=== PATIENT | female | born 2005 | race Caucasian/White ===

== ENCOUNTER 2024-03-10 09:14 | Emergency (ER) | payer OTHER, SELFPAY ==
[2024-03-10 09:16] VITALS: BP 153/99
[2024-03-10 09:26] VITALS: BP 147/93
--- NOTE | 2024-03-10 09:33 | ED.GENMED ---
History of Present Illness
<Shannon Smith PA-C - Last Filed: 03/10/24 16:18>
General
Chief Complaint: Breathing Problem
Source: patient and family
Time Seen by Provider: 03/10/24 09:22
History of Present Illness
History of Present Illness:
18yoF with a history of obesity and remote history of childhood asthma presenting with her mother for evaluation of shortness of breath. Patient returned from a 9 hour flight from [place] 2 days ago. While on the flight, she had an episode of
vomiting. She started to experience left periorbital swelling yesterday which resolved after taking Benadryl. She started to experience shortness of breath and chest tightness last night which continued into this morning. She went to [facility]
for evaluation and was found to be tachycardic. She had lab work done but is unsure of the results. She was give a 1x dose of prednisone 40mg and advised to go to the ED for evaluation. She denies any presyncope or syncope. No fevers. Last episode
of vomiting was around 1am this morning. She denies tobacco use.
Phy Exam
<Shannon Smith PA-C - Last Filed: 03/10/24 16:18>
General Physical Exam
General Presentation: mild distress
General age: appears stated age
General Skin: warm and dry
General Habitus: normal
General Mental: alert
General Hydration: appears well hydrated
Cardiovascular Exam
Cardiovascular Exam: no edema, no murmur and tachycardia
Pulmonary Exam
Pulmonary Exam: decreased breath sounds and other (Tachypnea noted. Decreased breath sounds throughout with faint expiratory wheezes. )
Respirations: moderate effort
Musculoskeletal Exam
Musculoskeletal Exam: no edema
Skin Exam
Skin Exam: normal color and warm/dry
Psychiatric Exam
Psychiatric Exam: normal mood/affect
Course
<Shannon Smith PA-C - Last Filed: 03/10/24 16:18>
Orders/Labs/Results
Orders:
Orders
03/10/24 09:17
ECG [Electrocardiogram (*1)] Urgent
Reason for Study: Chest Pain
03/10/24 09:18
EKG- Treatment ONCE
03/10/24 09:30
Albuterol Nebs [Ventolin Nebules] 5 mg INH R NOW STA
Ipratropium Nebs [Atrovent Nebules] 0.5 mg INH R NOW STA
Test Result ONCE
03/10/24 10:46
COVID-19 Antigen Urgent
Source: Nasal Swab
Complete Blood Count/With Diff Urgent
Comprehensive Metabolic Panel Urgent
D-Dimer Urgent
HCG, Serum Qualitative Screen Urgent
Troponin I Urgent
03/10/24 11:50
CT Chest Pe Study Urgent
Comment:
Reason For Exam: SOB, tachycardia, recent travel
03/10/24 15:29
Albuterol [ProAIR HFA INHALER] 2 puff INH R NOW STA
Abnormal Lab Results
03/10/24
10:46
WBC 15.5 H 10^3/uL
(4.8-10.8)
Abs Immat Gran (auto) 0.1 H 10^3/uL
(0-0.05)
Absolute Neuts (auto) 14.3 H 10^3/uL
(1.4-6.5)
Absolute Lymphs (auto) 0.8 L 10^3/uL
(1.2-3.4)
Neutrophils % 91.7 H %
(42.2-75.2)
Lymphocytes % 4.8 L %
(20.5-51.1)
Glucose 105 H mg/dl
(70-99)
ALT 36 H U/L
(0-35)
03/10/24 10:46
03/10/24 10:46
Vital Signs
Initial and Last Documented VS:
Initial Vital Signs
Temp Pulse Resp BP Pulse Ox
99.7 F 122 22 153/99 99
03/10/24 09:16 03/10/24 09:16 03/10/24 09:16 03/10/24 09:16 03/10/24 09:16
Last Documented Vital Signs
Temp Pulse Resp BP Pulse Ox
99.7 F 123 29 135/76 96
03/10/24 09:16 03/10/24 12:45 03/10/24 12:45 03/10/24 12:00 03/10/24 13:45
<Nida Nichole MD - Last Filed: 03/10/24 10:06>
Orders/Labs/Results
Orders:
Orders
03/10/24 09:17
ECG [Electrocardiogram (*1)] Urgent
Reason for Study: Chest Pain
03/10/24 09:18
EKG- Treatment ONCE
03/10/24 09:30
Albuterol Nebs [Ventolin Nebules] 5 mg INH R NOW STA
Ipratropium Nebs [Atrovent Nebules] 0.5 mg INH R NOW STA
Test Result ONCE
03/10/24 10:46
COVID-19 Antigen Urgent
Source: Nasal Swab
Complete Blood Count/With Diff Urgent
Comprehensive Metabolic Panel Urgent
D-Dimer Urgent
HCG, Serum Qualitative Screen Urgent
Troponin I Urgent
03/10/24 11:50
CT Chest Pe Study Urgent
Comment:
Reason For Exam: SOB, tachycardia, recent travel
03/10/24 15:29
Albuterol [ProAIR HFA INHALER] 2 puff INH R NOW STA
Abnormal Lab Results
03/10/24
10:46
WBC 15.5 H 10^3/uL
(4.8-10.8)
Abs Immat Gran (auto) 0.1 H 10^3/uL
(0-0.05)
Absolute Neuts (auto) 14.3 H 10^3/uL
(1.4-6.5)
Absolute Lymphs (auto) 0.8 L 10^3/uL
(1.2-3.4)
Neutrophils % 91.7 H %
(42.2-75.2)
Lymphocytes % 4.8 L %
(20.5-51.1)
Glucose 105 H mg/dl
(70-99)
ALT 36 H U/L
(0-35)
03/10/24 10:46
03/10/24 10:46
Vital Signs
Initial and Last Documented VS:
Initial Vital Signs
Temp Pulse Resp BP Pulse Ox
99.7 F 122 22 153/99 99
03/10/24 09:16 03/10/24 09:16 03/10/24 09:16 03/10/24 09:16 03/10/24 09:16
Last Documented Vital Signs
Temp Pulse Resp BP Pulse Ox
99.7 F 123 29 135/76 96
03/10/24 09:16 03/10/24 12:45 03/10/24 12:45 03/10/24 12:00 03/10/24 13:45
[place];Shannon Smith PA-C - Last Filed: 03/10/24 16:18>
MDM/Problems Addressed
Differential Diagnosis Includes:
18yoF here with SOB that began last night. Recent 9 hour flight from [place] 2 days ago. Remote hx of asthma. Sent here by urgent care. She is tachycardic to the 120s in triage. Oxygen saturation 99% on room air. She is tachypneic during exam.
Decreased breath sounds with wheezing noted. Differential diagnosis includes but is not limited to: asthma exacerbation/bronchospasm, viral syndrome, PE, pneumonia
Initial ED plan: Check cardiac labs, D-dimer, COVID swab, EKG, and CXR. DuoNeb and reassess.
<Shannon Smith PA-C - Last Filed: 03/10/24 16:18>
*EKG
Interpreted by ED Provider?: Yes
EKG Intrepretation Date: 03/10/24
EKG Intrepretation Time: 09:52
Heart Rate: 118
Rate: tachycardiac
Rhythm: sinus
[place]: normal axis
Interval: normal interval
QRS Pattern: normal QRS
Ischemia: no ischemia
*Critical Care Note
Total Time (30-74mins, 75-104mins- exclusive of procedures): Not Applicable
<Shannon Smith PA-C - Last Filed: 03/10/24 16:18>
Update Note
Update Note:
Labs reveal a leukocytosis with a WBC of 15. EKG shows sinus tachycardia without ischemic changes and troponin is shayy. D-dimer normal although patient persistently tachycardic so CTA chest added for completeness. CT is negative for pulmonary
embolism. There is a 3cm plate-like area in the RLL which may be possible pneumonia vs scarring vs atelectasis. Given leukocytosis, will cover with abx. Patient reassessed multiple times and she is feeling much better after neb treatment. Lungs now
CTA. No episodes of hypoxia during ED stay. She is stable for discharge. She was started on a course of prednisone and doxycycline. Neb machine provided as well as prescriptions for albuterol. Advised close PCP f/u and ED return precautions
discussed. She was discharged in stable condition with her mother.
ED Attending Note
<Shannon Smith PA-C - Last Filed: 03/10/24 16:18>
-
Portions of this chart may have been created with voice recognition software.� Occasional wrong word or��sound alike� substitutions may have occurred due to the inherent limitations of voice recognition software.
<Nida Nichole MD - Last Filed: 03/10/24 10:06>
ED Attending Note
Patient seen and examined by attending physician: Yes
I performed the substantive portion of visit, reviewed & personally made and approve the management plan that is documented in note by myself or KRISTIAN.: Yes
ED Attending Note:
Patient appears anxious but nontoxic and able to speak in full sentences. Patient is not hypoxic but is tachycardic in the 110s to 120. We will reassess patient after she gets a DuoNeb to see if her tachypnea is improved and if she feels better.
D-dimer also done to assess for risk of pulmonary embolism given her recent flight home from [place]. Patient is tachycardic on exam. Patient's bilateral lower legs are nontender and she has negative Homans' sign bilaterally
Discharge Plan
Departure
Patient Disposition: Home (Routine Discharge)
Date of Disposition: 03/10/24
Time of Disposition: 14:46
Patient with high blood pressure during this ER visit?: Yes
Discharge Problem:
Acute bronchospasm, Shortness of breath, Community acquired pneumonia
Instructions: Wheezing
Prescriptions:
New
doxycycline hyclate 100 mg capsule
100 mg PO BID Qty: 14 0RF
prednisone 50 mg tablet
50 mg PO DAILY Qty: 4 0RF
albuterol sulfate 2.5 mg/0.5 mL solution for nebulization
5 mg inhalation Q6H PRN (Reason: shortness of breath or wheezing) Qty: 30 0RF
albuterol sulfate [Ventolin HFA] 90 mcg/actuation HFA aerosol inhaler
1 inh inhalation Q6H PRN (Reason: shortness of breath or wheezing) Qty: 8.5 0RF
Referrals:
Parker Desai DO [Family Provider] -
Activity Restrictions/Additional Instructions:
Take antibiotics and prednisone as prescribed. Use inhaler and nebulizer treatments as needed for wheezing.
Please follow-up with your family doctor in 2-3 days. Return to the ER immediately with any new or worsening symptoms.
Interventions
Interventions:
*General Assessment Last Done: 03/10/24 09:48
*Neglect/Abuse Screening Last Done: 03/10/24 09:48
ED- Fall Risk Assessment Last Done: 03/10/24 09:48
*ED COVID-19 Vaccine History Last Done: 03/10/24 09:17
*Nursing Disposition Last Done: 03/10/24 15:52
ED- Cardiac Assessment Last Done: 03/10/24 09:48
ED- Pulmonary Assessment Last Done: 03/10/24 09:48
Discharge Date and Time
Discharge Date/Time: 03/10/24 15:53
Print Language: CITIZEN OF [place]
[2024-03-10] MEDS: ATROVENT NEBULES 0.5 MG INH (10:48)
[2024-03-10] MEDS: VENTOLIN NEBULES 5 MG INH (10:48)
[2024-03-10 10:53] VITALS: BP 139/89
[2024-03-10 10:54] LABS: % Basophils 0.3 % (0-2); % Eosinophils 0.1 % (0-6); % Immature Granulocytes 0.5 % (0-0.5); % Lymphocytes 4.8 % (20.5-51.1); % Monocytes 2.6 % (1.7-9.3); % Neutrophils 91.7 % (42.2-75.2); Absolute Immature Granulocytes 0.1 10^3/uL (0-0.05); Absolute Lymphocytes 0.8 10^3/uL (1.2-3.4); Absolute Monocytes 0.4 10^3/uL (0.1-0.6); Absolute Neutrophils 14.3 10^3/uL (1.4-6.5); Hematocrit 41.9 % (37.0-47.0); Hemoglobin 14.5 g/dL (12.0-16.0); Mean Corp Hgb Conc. 34.6 g/dL (33.0-37.0); Mean Corpuscular Hgb 30.1 pg (27.0-31.0); Mean Corpuscular Volume 86.9 fL (81.0-99.0); Mean Platelet Volume 10.1 fL (7.4-10.4); Nucleated Red Blood Cells % 0 %; Platelet Count 307 10^3/uL (130-400); Red Blood Cell Count 4.82 10^6/uL (4.20-5.40); Red Cell Dist. Width 13.3 % (11.5-14.5); White Blood Cell Count 15.5 10^3/uL (4.8-10.8)
[2024-03-10 11:00] VITALS: BP 123/90
[2024-03-10 11:06] LABS: D-Dimer 0.38 ug/mlFEU (0.00-0.50)
[2024-03-10 11:09] LABS: COVID-19 Antigen Negative (Negative)
[2024-03-10 11:15] LABS: ALT (SGPT) 36 U/L (0-35); AST (SGOT) 30 U/L (14-36); Albumin 4.5 g/dl (3.5-5.0); Alkaline Phosphatase 95 U/L (38-126); Blood Urea Nitrogen 11 mg/dl (7-17); Calcium 9.5 mg/dl (8.4-10.2); Carbon Dioxide 26 mmol/L (22-30); Chloride 103 mmol/L (98-107); Glucose 105 mg/dl (70-99); Potassium 4.8 mmol/L (3.5-5.1); Sodium 136 mmol/L (135-145); Total Bilirubin 0.5 mg/dl (0.2-1.3); Total Protein 7.5 g/dl (6.3-8.2); eGFR > 60.00
[2024-03-10 11:18] LABS: HCG, Serum Qualitative Screen Negative
[2024-03-10 11:24] LABS: Troponin I < 0.012 ng/ml
[2024-03-10 12:00] VITALS: BP 135/76
[2024-03-10] MEDS: ProAIR HFA INHALER 2 PUFF INH (15:51)
== END 2024-03-10 15:53 | disposition home or self-care (01) ==
LOC: EMR 09:14
PROVIDERS: Physician Assistant; EMERGENCY PHYSICIAN Emergency Medicine; FAMILY PHYSICIAN Family Medicine
DX: R06.02 Shortness of breath (principal); R11.10 Vomiting, unspecified; R00.0 Tachycardia, unspecified; J98.01 Acute bronchospasm; J18.9 Pneumonia, unspecified organism; Z11.52 Encounter for screening for COVID-19; J45.909 Unspecified asthma, uncomplicated; E66.9 Obesity, unspecified
CPT/HCPCS: 99285; 94640 ×2; 71275; 80053; 84484; 84703; 85025; 85379; 87811; 93005; Q9967

== ENCOUNTER → 2024-05-30 16:06 | Outpatient (REF) | payer OTHER, SELFPAY | LOC: RAD 16:06 | PROVIDERS: ATTENDING PHYSICIAN Nurse Practitioner Family | DX: J06.9 Acute upper respiratory infection, unspecified (principal) | CPT/HCPCS: 71046 ==

== ENCOUNTER → 2025-05-01 09:30 | Outpatient (REF) | payer OTHER, SELFPAY | LOC: WDC 09:30 | PROVIDERS: ATTENDING PHYSICIAN Physician Assistant Medical | DX: N63.31 Unspecified lump in axillary tail of the right breast (principal) | CPT/HCPCS: 76642 ==

== ENCOUNTER 2025-07-08 18:25 | Emergency (ER) | payer OTHER, SELFPAY ==
[2025-07-08 18:29] VITALS: BP 169/115
[2025-07-08 20:05] VITALS: BMI 47.3
[2025-07-08 20:06] VITALS: BP 153/89
--- NOTE | 2025-07-08 20:15 | ED.GENMED ---
History of Present Illness
General
Chief Complaint: Abdominal Pain
Time Seen by Provider: 07/08/25 19:48
History of Present Illness
History of Present Illness:
19-year-old female who presents to the emergency department for evaluation of right lower quad abdominal pain that began earlier this evening. She describes a constant pain that travels through to the lower back, no associated nausea, vomiting, or
diarrhea. No history abdominal surgeries. No fevers or chills. LMP 3 weeks ago
Review of Systems
Review of Systems
Allergies reviewed?: Yes
All Other Systems: ROS reviewed and negative except as documented in HPI and ROS
Phy Exam
Physical Exam
Physical Exam:
GEN: Well appearing, NAD, WDWN
HEENT: Oral mucosa moist, no scleral icterus
Cardiac: Regular rate
Lung: No respiratory distress, no tachypnea
Abdomen: Soft, moderate to severe tenderness in the right lower quadrant, no rigidity although morbid obesity limits exam
MSK: No gross deformity or injuries
Skin: Good color, no pallor or jaundice, no rashes
Neuro: AO x3, moves all extremities freely
Psych: Calm, cooperative
Course
Orders/Labs/Results
Orders:
Orders
07/08/25 19:50
Test Result ONCE
07/08/25 20:09
Urinalysis Reflex To Culture Urgent
Date Specimen was Collected: 07/08/25
Time Specimen was Collected: 20:03
Urine Microscopic Reflex Cult Urgent
Urine Culture Urgent
STANISLAV Source: U
Specimen Description:
Date Specimen was Collected: 07/08/25
Time Specimen was Collected: 20:03
07/08/25 20:18
CT Abd/Pel (IV only)-DH only Urgent
Comment:
Reason For Exam: RLQ pain
07/08/25 20:45
Complete Blood Count/With Diff Urgent
Comprehensive Metabolic Panel Urgent
HCG, Serum Qualitative Screen Urgent
07/08/25 21:26
Ketorolac [Toradol] 15 mg IV NOW STA
07/08/25 22:55
Sulfamethox./Trimethoprim Ds [Bactrim Ds 800 mg/160 mg] 1 tablet PO NOW STA
Abnormal Lab Results
07/08/25 07/08/25
20:09 20:45
WBC 11.7 H 10^3/uL
(4.8-10.8)
MCHC 32.8 L g/dL
(33.0-37.0)
Absolute Neuts (auto) 8.7 H 10^3/uL
(1.4-6.5)
Absolute Monos (auto) 0.8 H 10^3/uL
(0.1-0.6)
Lymphocytes % 18.0 L %
(20.5-51.1)
Sodium 133 L mmol/L
(135-145)
Leukocyte Esterase Rfl 1+ A
(Negative)
Urine WBC (Reflex) 11-15 A /HPF
(0-5)
Urine Bacteria (Reflex) Moderate A
(Negative)
Urine Albumin (Reflex) 1+ A
(Neg - Trace)
07/08/25 20:45
07/08/25 20:45
Vital Signs
Initial and Last Documented VS:
Initial Vital Signs
Temp Pulse Resp BP Pulse Ox
97.9 F 115 20 169/115 98
07/08/25 18:29 07/08/25 18:29 07/08/25 18:29 07/08/25 18:29 07/08/25 18:29
Last Documented Vital Signs
Temp Pulse Resp BP Pulse Ox
97.9 F 112 21 130/72 97
07/08/25 18:29 07/08/25 21:45 07/08/25 21:45 07/08/25 21:00 07/08/25 21:45
MDM/Problems Addressed
MDM/Problems Addressed:
Unclear etiology to her right lower abdominal pain. She did improve dramatically with Toradol administration. She is clinically well although mildly tachycardic, her heart rates do improve with passive observation while no one is in the room and
increase once staff enters the room suggesting anxiety component. She does have leukocytosis and pyuria which would suggest potential UTI although has no lower urinary tract voiding symptoms. CT shows no acute pathology. Given that her symptoms
did improve treat this empirically as a UTI pending culture
*Pulse Oximetry
SaO2: 98
Oxygen Mode of Delivery: Room air
Patient hypoxic: no
*Critical Care Note
Total Time (30-74mins, 75-104mins- exclusive of procedures): Not Applicable
ED Attending Note
-
Portions of this chart may have been created with voice recognition software.� Occasional wrong word or��sound alike� substitutions may have occurred due to the inherent limitations of voice recognition software.
Discharge Plan
Departure
Patient Disposition: Home (Routine Discharge)
Date of Disposition: 07/08/25
Time of Disposition: 22:55
Patient with high blood pressure during this ER visit?: No
Discharge Problem:
Acute right lower quadrant pain, Bacteriuria with pyuria
Instructions: Abdominal Pain
Prescriptions:
New
sulfamethoxazole-trimethoprim [Bactrim DS] 800-160 mg tablet
1 tab PO BID Qty: 9 0RF
No Action
albuterol sulfate 2.5 mg/0.5 mL solution for nebulization
5 mg inhalation Q6H PRN (Reason: shortness of breath or wheezing) Qty: 30 0RF
albuterol sulfate [Ventolin HFA] 90 mcg/actuation HFA aerosol inhaler
1 inh inhalation Q6H PRN (Reason: shortness of breath or wheezing) Qty: 8.5 0RF
Referrals:
UNKNOWN - PT DOES,NOT KNOW [Unknown Provider]
Interventions
Interventions:
*General Assessment Last Done: 07/08/25 18:29
*Neglect/Abuse Screening Last Done: 07/08/25 19:47
*ED- Fall Risk Assessment Last Done: 07/08/25 20:04
*ED COVID-19 Vaccine History Last Done: 07/08/25 20:04
*ED Influenza Vaccine History Last Done: 07/08/25 20:04
JP-Pqekuv-Acjphneljq Assessment Last Done: 07/08/25 20:05
Discharge Date and Time
Print Language: ARMENIAN
[2025-07-08 20:18] LABS: Urine Character Clear (Clear)
[2025-07-08 20:27] LABS: Urine Red Blood Cell 0-2 /HPF (0-2)
[2025-07-08 20:47] VITALS: BP 134/74
[2025-07-08 21:00] VITALS: BP 130/72
[2025-07-08 21:06] LABS: Hematocrit 42.7 % (37.0-47.0); Hemoglobin 14.0 g/dL (12.0-16.0); Mean Corp Hgb Conc. 32.8 g/dL (33.0-37.0); Mean Corpuscular Volume 90.1 fL (81.0-99.0); Nucleated Red Blood Cells % 0 %; Platelet Count 313 10^3/uL (130-400); Red Cell Dist. Width 13.4 % (11.5-14.5)
[2025-07-08 21:23] LABS: ALT (SGPT) 32 U/L (0-35); AST (SGOT) 23 U/L (14-36); Albumin 4.3 g/dl (3.5-5.0); Alkaline Phosphatase 72 U/L (38-126); Blood Urea Nitrogen 10 mg/dl (7-17); Calcium 9.2 mg/dl (8.4-10.2); Carbon Dioxide 28 mmol/L (22-30); Chloride 102 mmol/L (98-107); Estimated Creatinine Clearance > 125 ml/min; Glucose 89 mg/dl (70-99); HCG, Serum Qualitative Screen Negative; Potassium 4.2 mmol/L (3.5-5.1); Sodium 133 mmol/L (135-145); Total Protein 7.2 g/dl (6.3-8.2); eGFR > 60.00
[2025-07-08] MEDS: TORADOL 15 MG IV (21:45)
[2025-07-08 23:00] VITALS: BP 145/79
[2025-07-08] MEDS: BACTRIM DS 800 MG/160 MG 1 TABLET PO (23:26)
== END 2025-07-08 23:35 | disposition home or self-care (01) ==
LOC: EMR 18:25
PROVIDERS: Physician Assistant; EMERGENCY PHYSICIAN Student in an Organized Health Care Education/Training Program; FAMILY PHYSICIAN Physician Assistant Medical
DX: R10.31 Right lower quadrant pain (principal); R82.71 Bacteriuria; R82.81 Pyuria; D72.829 Elevated white blood cell count, unspecified; E66.01 Morbid (severe) obesity due to excess calories; Z68.42 Body mass index [BMI] 45.0-49.9, adult
CPT/HCPCS: 99284; 96374; 74177; 80053; 81003; 81015; 84703; 85025; 87086; Q9967